=== PATIENT | male | born 1980 | race Caucasian/White ===

== ENCOUNTER 2023-12-06 10:21 | Emergency (ER) | payer OTHER, SELFPAY ==
[2023-12-06] VITALS (8 sets, daily range): BP systolic 92–150; BP diastolic 57–83; PULSE 65–129; RESP 13–20; TEMP 36.6; O2SAT 94–100
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
[2023-12-06] MEDS: HALOPERIDOL LACTATE 5 MG/ML VIAL IM ×2 (10:24→10:29)
[2023-12-06] MEDS: diphenhydrAMINE HCl INJ 50 MG/ML VIAL IM (10:29)
[2023-12-06] MEDS: LORazepam INJ (*CRX) 2 MG/ML VIAL IM ×2 (10:30→11:15)
[2023-12-06] MEDS: KETAMINE HCL (*CRX) 500 MG/10 ML VIAL 300 MG IM (11:50)
--- NOTE | 2023-12-06 11:53 | PC.NURSE ---
Patient continued to thrash around and be uncooperative. Dr Mcneil ordered and administered 300mg ketamine IM.
[2023-12-06] MEDS: LACTATED RINGERS 1,000 ML 999 ML IV CONT ×2 (12:09)
[2023-12-06 12:11] LABS: Basophils Absolute Auto 0.1 K/mm3 (0.0-0.1); Basophils Percent Auto 0.7 % (0.2-1.2); Eosinophils Absolute Auto 0.1 K/mm3 (0-0.3); Eosinophils Percent Auto 1.4 % (0-4.4); Hematocrit 37.7 % (42.0-52.0); Hemoglobin 12.9 g/dL (14.0-18.0); Immature Granulocyte Absolute 0.04 K/mm3 (0.00-0.031); Immature Granulocyte Percent A 0.5 % (0-0.5); Lymphocytes Percent Auto 12.5 % (18.3-44.2); Mean Corpuscular HGB Conc 34.2 g/dl (32-36); Mean Corpuscular Hemoglobin 30.6 pg (26-34); Mean Corpuscular Volume 89.5 fl (80-100); Mean Platelet Volume 9.6 fl (7.4-10.4); Monocytes Absolute Auto 0.5 K/mm3 (0.1-0.6); Monocytes Percent Auto 6.2 % (2.6-8.5); Neutrophils Absolute Auto 6.9 K/mm3 (1.3-6.7); Neutrophils Percent Auto 78.7 % (45.5-73.1); Platelet Count Result 339 k/mm3 (150-375); Red Blood Count 4.21 M/mm3 (4.6-6.20); Red Cell Distribution Width 13.1 % (11.5-14.5); White Blood Count 8.8 K/mm3 (4.5-10.0)
[2023-12-06 12:21] LABS: Alanine Aminotransferase 19 U/L (6-50); Albumin Level 3.9 g/dL (3.5-5.1); Alkaline Phosphatase 78 U/L (38-126); Anion Gap 6 mmol/L (4-12); Aspartate Amino Transferase 27 U/L (17-59); Bilirubin,Total 0.3 mg/dL (0.2-1.3); Blood Urea Nitrogen 13 mg/dL (9-20); Calcium 8.8 mg/dL (8.4-10.2); Carbon Dioxide 29 mmol/L (22-30); Chloride 101 mmol/L (98-107); Creatine Kinase 277 U/L (55-170); Estimated Glomerular Filt Rate > 60; Glucose 126 mg/dL (65-110); Potassium 3.9 mmol/L (3.4-5.0); Sodium 136 mmol/L (137-145)
[2023-12-06 12:29] LABS: Acetaminophen < 10 ug/mL (10-30); Ethanol < 10 mg/dL (<10); Salicylate < 1.0 mg/dL (2-20)
--- NOTE | 2023-12-06 12:39 | PC.NURSE ---
patient resting at this time. vital signs are WNL.
[2023-12-06 12:51] LABS: Thyroid Stimulating Hormone 0.167 uIU/mL (0.465-4.680)
[2023-12-06 12:54] LABS: Add Urine Microscopic? YES; Appearance Urine Cloudy (Clear); Bacteria Urine None Seen /hpf; Bilirubin Urine Negative (Negative); Blood Urine Negative (Negative); Color Urine Yellow (Yellow); Glucose Urine UA Negative (Negative); Ketones Urine Negative (Negative); Leukocyte Esterase Ur Negative LEU/UL (Negative); Nitrate Urine Negative (Negative); Non Pathogenic Casts 0-2; Protein Urine Negative (Negative); RBC Urine 0-2 /hpf (0-2); Specific Grav Ur 1.011 (1.001-1.035); Squamous Epithelial Cell Urine None Seen /hpf (Few); WBC Urine 0-5 /hpf (0-3)
[2023-12-06 13:05] LABS: Barbiturate Screen Urine Negative (Negative); Benzodiazepines Screen Urine Negative (Negative)
[2023-12-06 13:09] LABS: Cannabinoid Screen Urine Positive (Negative); Cocaine Screen Urine Negative (Negative); Methadone Screen Urine Negative (Negative); Opiate Screen Urine Positive (Negative); Phencyclidine Screen Urine Negative (Negative)
[2023-12-06 13:16] LABS: Amphetamine Screen Urine Positive (Negative)
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
[2023-12-06] MEDS: MIDAZOLAM HCL (*CRX) 2 MG/2 ML VIAL 6 MG (17:45)
--- NOTE | 2023-12-06 22:06 | PC.NURSE ---
patient wakes up, mumbles incoherantly and then tries to climb out of bed. unable to assess patients mental status at this time
--- NOTE | 2023-12-07 03:10 | PC.NURSE ---
pt becomes combative and rips everything off when placing vital sign monitors
[2023-12-07 03:11] VITALS: O2SAT 98
[2023-12-07 04:25] VITALS: BP 132/72; PULSE 66; RESP 16; TEMP 36.1; O2SAT 99
--- NOTE | 2023-12-07 07:33 | PC.NURSE ---
Awake but drowsy. Cooperative with staff.
== END 2023-12-07 08:35 | disposition home or self-care (01) ==
PROVIDERS: Emergency Provider Emergency Medicine
DX: F15.121 Other stimulant abuse with intoxication delirium (principal); F11.10 Opioid abuse, uncomplicated
CPT/HCPCS: 36415; 70450; 71045; 80053; 80143; 80179; 80307; 81001; 82077; 82550; 84443; 85025; 96361; 96372; 96374; 99284; J1200; J1630; J2060; J2250; J7120